=== PATIENT | female | born 1985 | race Caucasian/White ===

== ENCOUNTER 2020-09-21 18:14 | Emergency (ER) | payer BC, SELFPAY ==
[2020-09-21 18:52] VITALS: BP 121/84; PULSE 89; RESP 18; TEMP 37.1; O2SAT 99; BMI 25.0
--- NOTE | 2020-09-21 19:14 | HMH.EDUTC ---
[facility] [place] Clinical Impression: Encounter for laboratory testing for COVID-19 virus Disposition: Home, Self-Care Condition on Discharge: Good Instructions: Preventing the Spread of Coronavirus Discharge Instructions Additional Instructions: *Monitor Temp, Over the counter Motrin or Tylenol as directed/as needed Tylenol every 4 hours and Motrin every 6 hours (as long as your family doctor has told you that you can take it) for fever or pain. and straight to ER if unable to lower temp less than 101.0 after medication given *Warm salt water gargles may help to soothe the throat *Throat Lozenges *Warm fluids like tea with honey may help to soothe the throat *Sleep elevated *Humidifier/Vaporizer Follow up IMMEDIATELY for new or worsening symptoms or no Noticeable improvement over the next 48-72 hours. 911 for difficulty breathing or swallowing You was tested for today for COVID19 your test result should be back later this evening, you may call back later this evening to see if your test results are back and the result You was given a handout with instructions for Self Quarantine and Self isolation for while you wait on test results and what to do if they are positive Referrals: Yo Pruitt [Primary Care Provider] - As needed Forms: Work/School Release Time of Disposition: 19:17 Medical Decision Making - Santosh Inquiry Pt receiving controlled substance: No Santosh was queried for this patient: No Vital Signs: 09/21/20 18:52 Temperature 98.8 F Temperature Source Oral Pulse Rate [Radial] 89 Respiratory Rate 18 Blood Pressure [Right Arm] 121/84 Blood Pressure Mean [Right Arm] 96 Blood Pressure Source [Right Arm] Automatic Cuff Blood Pressure Position [Right Arm] Sitting 02 Sat by Pulse Oximetry 99 Oxygen Delivery Method Room Air Orders (Tests/Meds): ORDERS Category Date Time Status Covid-19 Nasal PCR ([facility]) Routine Lab 09/21/20 18:41 Received [facility] [place] - General Stated complaint: Covid test Time Seen by Provider: 09/21/20 19:15 Mode of Arrival: Ambulatory Source of Information: Patient Limitations: No Limitations Description of Symptoms (Recalled from Triage Doc. 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 associated with COVID so she wanted to get tested to make sure that she didnt pass it on at school to other children if she had it Denies symptoms - Related Data Allergies Allergy/AdvReac Type Severity Reaction Status Date / Time No Known Allergies Allergy Verified 09/21/20 18:55 - Worker's Comp Is this a Worker's Comp case?: No [facility] History - Hepatitis A Screen Drug use history?: No High risk sexual behaviors?: No History of sexually transmitted infection?: No Currently employed?: No Childcare worker?: No Do you have indoor plumbing?: Yes Do you have electricity?: Yes Attestation statement:: This patient has been screened for Hepatitis A risk factors. I have reviewed the patient's past medical history: Yes - Social History Alcohol Intake: never Occupational Status: other ROS Obtained: Yes All systems reviewed & no additional complaints, Yes Systems reviewed as appropriate & no additional complaints - Constitutional Constitutional: Reports system reviewed and no additional complaints, except as docu, Denies body ache, Denies chills, Denies fever(s), Denies headache(s) - ENT Ears, Nose, Mouth, and Throat: Reports system reviewed and no additional complaints, except as docu, Denies nasal congestion, Denies nasal discharge, Denies sore throat - Cardiovascular Cardiovascular: Reports system reviewed and no additional complaints, excep
[2020-09-21 19:46] VITALS: BP 121/84; PULSE 89; RESP 18; TEMP 37.1; O2SAT 99
--- NOTE | 2020-09-22 09:23 | PC.NURSE ---
Pt notified of hers and sons positive covid tests at this time
== END 2020-09-21 19:47 | disposition home or self-care (01) ==
PROVIDERS: Emergency Provider Nurse Practitioner; PCP Family Medicine
DX: U07.1 COVID-19 (principal)
CPT/HCPCS: 99201; U0003

== ENCOUNTER 2020-12-24 14:16 | Emergency (ER) | payer BC, SELFPAY ==
[2020-12-24 14:25] VITALS: BP 116/87; PULSE 102; RESP 19; TEMP 36.9; O2SAT 98; BMI 26.2
--- NOTE | 2020-12-24 14:48 | HMH.EDUTC ---
[place] Disposition Clinical Impression: Encounter for laboratory testing for COVID-19 virus Sinusitis Qualifiers: Sinusitis location: unspecified location Chronicity: unspecified Qualified Code(s): J32.9 - Chronic sinusitis, unspecified Disposition: Home, Self-Care Condition on Discharge: Good Instructions: Sinusitis, Sinus Headache, DI for Sinusitis, DI for COVID-19 (Suspected or Confirmed ), Coronavirus Disease 2019, Preventing the Spread of Coronavirus Discharge Instructions Additional Instructions: *Monitor Temp, Over the counter Motrin or Tylenol as directed/as needed Tylenol every 4 hours and Motrin every 6 hours (as long as your family doctor has told you that you can take it) for fever or pain. and straight to ER if unable to lower temp less than 101.0 after medication given *Warm salt water gargles may help to soothe the throat *Throat Lozenges *Warm fluids like tea with honey may help to soothe the throat *Sleep elevated *Humidifier/Vaporizer Follow up IMMEDIATELY for new or worsening symptoms or no Noticeable improvement over the next 48-72 hours. 911 for difficulty breathing or swallowing You were tested for today for COVID19 your test result should be back in the next 24-48 hours, you may call to the [facility] to see if your test results are back in the next 48 hours [phone] [facility] hours are 9am-9pm You was given a handout with instructions for Self Quarantine and Self isolation for while you wait on test results and what to do if they are positive If you are positive the Health Dept will be contacting you also Prescriptions: methylPREDNISolone [Medrol 4mg tab] 4 mg PO DIRECTED #21 tab Transmission Status: [id number] guaiFENesin [Mucinex] 600 mg PO Q12H PRN #20 tab.er.[id number] PRN Reason: Cough Transmission Status: Pending to [id number] Azithromycin [Z-Tono 250mg Tab] 250 mg PO DIRECTED #6 tab [facility] Referrals: Yo Pruitt [Primary Care Provider] - As needed Forms: Work/School Release Time of Disposition: 15:05 Medical Decision Making - Santosh Inquiry Pt receiving controlled substance: No Santosh was queried for this patient: No Vital Signs: 12/24/20 14:25 Temperature 98.4 F Temperature Source Oral Pulse Rate [Right Brachial] 102 H Respiratory Rate 19 Blood Pressure [Right Arm] 116/87 Blood Pressure Mean [Right Arm] 96 Blood Pressure Source [Right Arm] Automatic Cuff Blood Pressure Position [Right Arm] Sitting 02 Sat by Pulse Oximetry 98 Oxygen Delivery Method Room Air - Lab Data Lab results reviewed: Yes: I reviewed the patient's lab results. Orders (Tests/Meds): ORDERS Category Date Time Status Covid-19 Nasal PCR ([facility]) Routine Lab 12/24/20 14:21 Ordered [place] HPI - General Stated complaint: covid symtoms Time Seen by Provider: 12/24/20 14:48 Mode of Arrival: Ambulatory Source of Information: Patient Limitations: No Limitations Description of Symptoms (Recalled from Triage Doc. by RN): PATIENT C/O COUGH, SOA, CONGESTION, NO TASTE OR SMELL, AND CHEST CONGESTION SINCE FRIDAY. REQUESTING COVID TEST HEENT Symptoms (Recalled from RN notes): Yes Resp Symptoms (Recalled from RN notes): No Skin Symptoms (Recalled from RN notes): No MS Symptoms (Recalled from RN notes): No Functional Status (Recalled from RN notes): WNL - History of Present Illness Provider Complaint: Patient state that she has been having a sinus congestion with pressure for over a week States that she took the COVID vaccine on Fri and she has continued to get worse States that she was worried she may have contracted COVID States that she feels like her sinuses is draining and moving into her chest area States that she also has not been able to taste or smell anything and blowing out dark yellowish green mucous - Related Data Home Medications Medication Instructions Recorded Confirmed Escitalopram Oxalate [Lexapro] 20 m
[2020-12-24 15:01] LABS: UTC Influenza A Antigen Negative (Negative); UTC Influenza B Antigen Negative (Negative)
[2020-12-24 15:07] VITALS: BP 116/87; PULSE 102; RESP 19; TEMP 36.9; O2SAT 98
--- NOTE | 2020-12-24 20:40 | PC.NURSE ---
PT NOTIFIED OF POSITIVE COVID RESULT
== END 2020-12-24 15:10 | disposition home or self-care (01) ==
PROVIDERS: Emergency Provider Nurse Practitioner; PCP Family Medicine
DX: U07.1 COVID-19 (principal); J32.9 Chronic sinusitis, unspecified
CPT/HCPCS: 87804; 99202; G0463; U0003

== ENCOUNTER 2022-05-07 13:33 | Emergency (ER) | payer BC, SELFPAY ==
--- NOTE | 2022-05-07 13:36 | XR_ITS ---
FINAL REPORT CLINICAL HISTORY: pain FINDINGS: LEFT FOOT There is no acute fracture or dislocation. The joint spaces are intact. There is no soft tissue abnormality. IMPRESSION: No acute fracture Reviewed, Interpreted and Dictated by Oz Abbasi III, MD Transcribed by Priscila Castillo Authenticated and [facility]
[2022-05-07 14:05] VITALS: BP 131/84; PULSE 88; RESP 18; TEMP 36.9; O2SAT 97; BMI 25.7
--- NOTE | 2022-05-07 14:40 | HMH.EDUTC ---
[facility] [place] Clinical Impression: Foot pain Qualifiers: Laterality: left Qualified Code(s): M79.672 - Pain in left foot Disposition: Home, Self-Care Condition on Discharge: Good Instructions: DI for Foot Pain, How to Apply an Jewel Wrap, How to Use Crutches Additional Instructions: *weight bearing as tolerated *RICE, Rest the extremity, Ice 15-20 minutes 3-4 times daily, Compress- wear the jewel wrap as discussed as much as possible to help reduce swelling and pain, Elevate the extremity when at rest *Jewel wrap is for support and help control swelling, use it except in the shower. Be sure that is not to tight but not to loose either *Elevate when resting *Ibuprofen 600-800mg every 6-8 hours as needed for pain an inflammation. If need something more can take Tylenol in between doses of Ibuprofen to help Immediately follow up with your family doctor for new or worsening of symptoms, or no noticeable improvement over the next 3-5 days Referrals: Yo Pruitt [Primary Care Provider] - As needed Time of Disposition: 14:54 Medical Decision Making - Santosh Inquiry Pt receiving controlled substance: No Santosh was queried for this patient: No Vital Signs: 05/07/22 14:05 Temperature 98.5 F Temperature Source Oral Pulse Rate [Right Brachial] 88 Respiratory Rate 18 Blood Pressure [Right Arm] 131/84 Blood Pressure Mean [Right Arm] 99 Blood Pressure Source [Right Arm] Automatic Cuff Blood Pressure Position [Right Arm] Sitting 02 Sat by Pulse Oximetry 97 Oxygen Delivery Method Room Air Orders (Tests/Meds): ORDERS Category Date Time Status XR foot LT min 3V Stat Exams 05/07/22 13:36 Taken - Radiology Data #1 Image(s): Foot/Toes Image Reviewed: Yes I have reviewed radiologist's interpretation IMPRESSION: No acute fracture [facility] [place] HPI - General Stated complaint: left foot pain Time Seen by Provider: 05/07/22 14:40 Mode of Arrival: Ambulatory Source of Information: Patient Limitations: No Limitations Description of Symptoms (Recalled from Triage Doc. by RN): PATIENT C/O PAIN TO OUTSIDE OF LEFT FOOT SINCE FRIDAY. NO KNOWN INJURY HEENT Symptoms (Recalled from RN notes): No Resp Symptoms (Recalled from RN notes): No Skin Symptoms (Recalled from RN notes): No MS Symptoms (Recalled from RN notes): Yes Functional Status (Recalled from RN notes): WNL - History of Present Illness Provider Complaint: Patient states that she hasnt done anything that she is aware of but she has been having pain in the side of her left foot that is worse when she tries to walk on it since Friday State that shoots pain from her little toe up the top of her foot States that today she was still having pain so she came in to get it checked out - Related Data Home Medications Medication Instructions Recorded Confirmed Escitalopram Oxalate [Lexapro] 20 mg PO DAILY 12/24/20 05/07/22 Spironolactone [Aldactone 50mg 50 mg PO DAILY 12/24/20 05/07/22 Tab] Topiramate [Trokendi Xr] 50 mg PO DAILY 12/24/20 05/07/22 Allergies Allergy/AdvReac Type Severity Reaction Status Date / Time No Known Allergies Allergy Verified 09/21/20 18:55 - Worker's Comp Is this a Worker's Comp case?: No [facility] History - Hepatitis A Screen Attestation statement:: This patient has been screened for Hepatitis A risk factors. Laterality Cases: Bilateral: Carpal Tunnel Release, Myringotomy (Ear Tubes) - Social History Alcohol Intake: never Occupational Status: other ROS Obtained: Yes All systems reviewed & no additional complaints, Yes Systems reviewed as appropriate & no additional complaints - ENT Ears, Nose, Mouth, and Throat: Reports system reviewed and no additional complaints, except as docu - Cardiovascular Cardiovascular: Reports system reviewed and no additional complaints, except as docu - Gastrointestinal Gastrointestingal: Reports: system reviewed and no additional complaints, except as docu - Musculoskeletal Musc
[2022-05-07 15:02] VITALS: BP 131/84; PULSE 88; RESP 18; TEMP 36.9; O2SAT 97
== END 2022-05-07 15:06 | disposition home or self-care (01) ==
PROVIDERS: Emergency Provider Nurse Practitioner; PCP Family Medicine
DX: M79.672 Pain in left foot (principal)
CPT/HCPCS: 73630; 99212; G0463

== ENCOUNTER 2023-12-08 14:20 | Outpatient (CLI) | payer BC, SELFPAY ==
--- NOTE | 2023-12-08 14:25 | XR_ITS ---
FINAL REPORT CLINICAL HISTORY: DORSALGIA COMPARISON: None FINDINGS: 5 views of the lumbar spine were obtained. There is no evidence of fracture or dislocation. The vertebral alignment is normal. Mild degenerative change with osteophytes. There is mild leftward curvature of the lumbar spine. No paraspinous soft tissue abnormalities identified. An IUD is present in the pelvis. IMPRESSION: Mild degenerative change without acute bony abnormality. Reviewed, Interpreted and Dictated by Oz Abbasi III, MD Transcribed by Priscila Castillo Authenticated and . [facility]
== END 2023-12-08 23:59 ==
LOC: RAD 14:21
PROVIDERS: PCP Nurse Practitioner Family; Visit Provider Nurse Practitioner Family
DX: M54.9 Dorsalgia, unspecified (principal)
CPT/HCPCS: 72110

== ENCOUNTER 2024-01-01 15:58 | Outpatient (RCR) | payer BC, SELFPAY | END 2024-01-01 17:00 | disposition home or self-care (01) | LOC: PT 15:58 | PROVIDERS: PCP Nurse Practitioner Family; Visit Provider Nurse Practitioner Family | DX: M54.9 Dorsalgia, unspecified (principal); M54.50 Low back pain, unspecified | CPT/HCPCS: 97163 ==

== ENCOUNTER 2024-02-02 08:46 | Outpatient (CLI) | payer BC, SELFPAY ==
--- NOTE | 2024-02-02 08:53 | XR_ITS ---
FINAL REPORT CLINICAL HISTORY: COUGH chest pain/tightness soa COMPARISON: None FINDINGS: Two views of the chest were obtained. The heart size and pulmonary vascularity are within normal limits. The mediastinum is normal. No acute pulmonary abnormality is identified. There is no pneumothorax. The bony thorax is intact. IMPRESSION: No active cardiopulmonary disease. Reviewed, Interpreted and Dictated by Oz Abbasi III, MD Transcribed by Priscila Castillo Authenticated and . [facility]
== END 2024-02-02 23:59 ==
LOC: RAD 08:47
PROVIDERS: PCP Nurse Practitioner Family; Visit Provider Nurse Practitioner Family
DX: M54.9 Dorsalgia, unspecified (principal); R05.9 Cough, unspecified
CPT/HCPCS: 71046

== ENCOUNTER 2024-09-23 15:26 | Outpatient (CLI) | payer BC, SELFPAY ==
--- NOTE | 2024-09-23 15:32 | MM_ITS ---
PROCEDURE INFORMATION: Exam: MG Bilateral Screening 3D Mammography Exam date and time: 09/23/2024 3:30 PM Age: 39 years old Clinical indication: Screening exam. TECHNIQUE: Imaging protocol: Bilateral Screening tomosynthesis and 2D mammography including computer-aided detection (CAD) when performed. COMPARISON: No relevant prior studies available. FINDINGS: MAMMOGRAPHY: Breast composition: The breasts are heterogeneously dense, which may obscure small masses. Mass: No suspicious masses. Architectural distortion: None. Calcifications: No suspicious calcifications. Asymmetric density: 1 cm questioned focal asymmetry right breast roughly 9 o'clock 5 cm the nipple posterior depth. Skin thickening: None. Axillary adenopathy: None. IMPRESSION: Questioned right breast focal asymmetry. Recommend right breast diagnostic mammogram including spot compression views of the right breast in the CC and MLO projections, a full 90 degree lateral view, and right breast ultrasound for further evaluation. ASSESSMENT: BI-RADS Category 0: Incomplete- Need Additional Imaging Evaluation.
== END 2024-09-23 23:59 | disposition home or self-care (01) ==
LOC: RAD 15:27
PROVIDERS: PCP Nurse Practitioner Family; Visit Provider Obstetrics & Gynecology
DX: Z12.31 Encounter for screening mammogram for malignant neoplasm of breast (principal)
CPT/HCPCS: 77063; 77067

== ENCOUNTER 2024-10-14 14:28 | Outpatient (CLI) | payer BC, SELFPAY ==
--- NOTE | 2024-10-14 14:28 | US_ITS ---
PROCEDURE INFORMATION: Exam: US Right Breast, Complete MG Right Diagnostic Breast Tomosynthesis Exam date and time: 10/14/2024 3:01 PM Age: 39 years old Clinical indication: Callback from screening for a right breast focal asymmetry. TECHNIQUE: Imaging protocol: Complete ultrasound of all four quadrants of the right breast and the retroareolar regions, including ultrasound of the axilla when performed. Right Diagnostic tomosynthesis and 2D mammography including computer-aided detection (CAD) when performed. Unilateral or bilateral exam. COMPARISON: MG MM DIG MAMM DX UNILAT RT CAD 10/14/2024 2:15 PM FINDINGS: MAMMOGRAPHY: Breast composition: The breasts are heterogeneously dense, which may obscure small masses (based on the most recent screening mammogram report). Breast mammogram findings: In the right 9 o'clock axis, there is a partially circumscribed low-density mass which is believed to relate to a lymph node, at the posterior depth, best seen on the CC spot compression projection measuring 0.6 cm. No suspicious calcifications or architectural distortion. ULTRASOUND: Breast ultrasound findings: Ultrasound of the right breast is performed and demonstrates no underlying mass,, shadowing, or distortion is seen. There is no correlate to the mammogram finding in the 9 o'clock axis. No axillary adenopathy. IMPRESSION: Probably benign partially circumscribed low-density mass in the right 9 o'clock breast seen on the mammogram only. Follow-up right breast diagnostic mammogram in 6 months is recommended for close surveillance. ASSESSMENT: BI-RADS Category 3: Probably benign.
== END 2024-10-14 23:59 | disposition home or self-care (01) ==
LOC: RAD 14:28
PROVIDERS: PCP Nurse Practitioner Family; Visit Provider Obstetrics & Gynecology
DX: R92.2 Inconclusive mammogram (principal); R92.341 Mammographic extreme density, right breast
CPT/HCPCS: 76641; 77061; 77065; G0279